=== PATIENT | male | born 1955 | race African-American/Black ===

== ENCOUNTER 2019-02-11 14:46 | Emergency (ER) | payer MEDICARE ==
[~2019-02-11] VITALS: Ht 170.2 cm; Wt 64.9 kg
[2019-02-11] MEDS ORDERED: VERAPAMIL SR 180 MG TABLET.ER. PO STA (15:30)
[2019-02-11 15:47] LABS: BASO % 1 % (0-3); EOS # 0.1 x10^3/uL (0.0-0.7); EOS % 1 % (0-3); HEMATOCRIT 33.6 % (39.0-53.0); HEMOGLOBIN 10.9 g/dL (13.0-17.5); LYMPH # 3.4 x10^3/uL (1.0-4.8); LYMPH % 55 % (24-48); MEAN CORPUSCULAR HEMOGLOBIN 20 pg (25-35); MEAN CORPUSCULAR HGB CONC 32 g/dL (31-37); MEAN CORPUSCULAR VOLUME 63 fL (79-100); MONO # 0.4 x10^3/uL (0.0-1.1); MONO % 6 % (0-9); NEUT # 2.3 x10^3uL (1.8-7.7); NEUT % 37 % (31-73); PLATELET COUNT 299 x10^3/uL (140-400); RED BLOOD COUNT 5.36 x10^6/uL (4.30-5.70); WHITE BLOOD COUNT 6.2 x10^3/uL (4.0-11.0)
[2019-02-11 15:52] LABS: CALCIUM 8.8 mg/dL (8.5-10.1); CREATININE 0.9 mg/dL (0.7-1.3); GFR 102.5; POTASSIUM 4.1 mmol/L (3.5-5.1)
[2019-02-11 15:53] LABS: PROTHROMBIN TIME PATIENT 12.9 SEC (11.7-14.0)
[2019-02-11 15:57] LABS: ALBUMIN 3.6 g/dL (3.4-5.0); ALBUMIN/GLOBULIN RATIO 1.1 (1.0-1.7); TOTAL BILIRUBIN 0.3 mg/dL (0.2-1.0); TOTAL PROTEIN 6.8 g/dL (6.4-8.2)
--- NOTE | 2019-02-11 16:05 | PHYS DOC ---
Past Medical History Past Medical History: Hypertension, Seizure, Other Additional Past Medical Histor: NARCOLEPSY Past Surgical History: Other Additional Past Surgical Histo: "BACK SURGERY" Smoking: Cigarettes Alcohol Use: Heavy Drug Use: Cocaine Adult General Chief Complaint Chief Complaint: SEIZURE HPI HPI Patient is a 63 year old male who presents after a seizure that occurred around 2:10 PM. Friend describes him as slumping over in the car and staring straight ahead. He was a passenger in the vehicle. Patient [place] from [place] of town and has a history of seizures. Is followed by neurologist who has been trying therapy with verapamil. Patient did not take his medicines today. He was drinking last night. Denies alcohol today. Pain is 0/10. Was brought to ER after event. Review of Systems Review of Systems Constitutional: Denies fever or chills [] Eyes: Denies change in visual acuity, redness, or eye pain [] HENT: Denies nasal congestion or sore throat [] Respiratory: Denies cough or shortness of breath [] Cardiovascular: No additional information not addressed in HPI [] GI: Denies abdominal pain, nausea, vomiting, bloody stools or diarrhea [] : Denies dysuria or hematuria [] Musculoskeletal: Denies back pain or joint pain [] Integument: Denies rash or skin lesions [] Neurologic: Reports headache denies focal weakness or sensory changes [] Endocrine: Denies polyuria or polydipsia [] Complete systems were reviewed and found to be within normal limits, except as d ocumented in this note. Current Medications Current Medications Current Medications Medications (Trade) Dose Ordered Sig/Watson Start Time Stop Time Status Last Admin Dose Admin Levetiracetam 1000 mg/Sodium Chloride 110 ml @ 440 mls/hr 1X ONCE 02/11/19 15:45 02/11/19 15:59 DC 02/11/19 15:54 440 MLS/HR Verapamil HCl (Calan Sr) 360 mg 1X STAT 02/11/19 15:30 02/11/19 15:48 DC 02/11/19 15:55 360 MG Allergies Allergies Allergies Coded Allergies Type Severity Reaction Last Updated Verified No Known Drug Allergies 02/11/19 No Physical Exam Physical Exam Constitutional: Well developed, well nourished, no acute distress, non-toxic appearance. [] HENT: Normocephalic, atraumatic, bilateral external ears normal, oropharynx moist, no oral exudates, nose normal, missing teeth Eyes: PERRLA, EOMI, conjunctiva normal, no discharge. [] Neck: Normal range of motion, no tenderness, supple, no stridor. [] Cardiovascular:Heart rate regular rhythm, no murmur [] Lungs & Thorax: Bilateral breath sounds clear to auscultation [] Abdomen: Bowel sounds normal, soft, no tenderness, no masses, no pulsatile masses. [] Skin: Warm, dry, no erythema, no rash. [] Back: No tenderness, no CVA tenderness. [] Extremities: No tenderness, no cyanosis, no clubbing, ROM intact, no edema. [] Neurologic: Alert and oriented X 3, normal motor function, normal sensory function, no focal deficits noted. [] Psychologic: Affect lethargic, mood: tired. Current Patient Data Vital Signs Vital Signs Date Time Temp Pulse Resp B/P (MAP) Pulse Ox O2 Delivery O2 Flow Rate FiO2 02/11/19 15:55 68 143/95 02/11/19 15:17 98.6 16 99 Room Air 98.6 Lab Values Laboratory Tests Test 02/11/19 15:36 White Blood Count 6.2 x10^3/uL (4.0-11.0) Red Blood Count 5.36 x10^6/uL (4.30-5.70) Hemoglobin 10.9 g/dL (13.0-17.5) L Hematocrit 33.6 % (39.0-53.0) L Mean Corpuscular Volume 63 fL (79-100) L Mean Corpuscular Hemoglobin 20 pg (25-35) L Mean Corpuscular Hemoglobin Concent 32 g/dL (31-37) Red Cell Distribution Width 24.0 % (11.5-14.5) H Platelet Count 299 x10^3/uL (140-400) Neutrophils (%) (Auto) 37 % (31-73) Lymphocytes (%) (Auto) 55 % (24-48) H Monocytes (%) (Auto) 6 % (0-9) Eosinophils (%) (Auto) 1 % (0-3) Basophils (%) (Auto) 1 % (0-3) Neutrophils # (Auto) 2.3 x10^3uL (1.8-7.7) Lymphocytes # (Auto) 3.4 x10^3/uL (1.0-4.8) Monocytes # (Auto) 0.4 x10^3/uL (0.0-1.1) Eosinophils # (Auto) 0.1 x10^3/uL (0.0-0.7) Basophils # (Auto) 0.0 x10^3/uL (0.0-0.2) Platelet Estimate Pending Prothrombin Time 12.9 SEC (11.7-14.0) Prothrombin Time INR 1.0 (0.8-1.1) PTT 28 SEC (24-38) Sodium Level 138 mmol/L (136-145) Potassium Level 4.1 mmol/L (3.5-5.1) Chloride Level 102 mmol/L (98-107) Carbon Dioxide Level 26 mmol/L (21-32) Anion Gap 10 (6-14) Blood Urea Nitrogen 12 mg/dL (8-26) Creatinine 0.9 mg/dL (0.7-1.3) Estimated GFR (Cockcroft-Gault) 102.5 BUN/Creatinine Ratio 13 (6-20) Glucose Level 109 mg/dL (70-99) H Calcium Level 8.8 mg/dL (8.5-10.1) Total Bilirubin 0.3 mg/dL (0.2-1.0) Aspartate Amino Transferase (AST) 16 U/L (15-37) Alanine Aminotransferase (ALT) 15 U/L (16-63) L Alkaline Phosphatase 71 U/L (46-116) Total Protein 6.8 g/dL (6.4-8.2) Albumin 3.6 g/dL (3.4-5.0) Albumin/Globulin Ratio 1.1 (1.0-1.7) Laboratory Tests 02/11/19 15:36 Laboratory Tests 02/11/19 15:36 EKG EKG EKG interpreted by Dr. Lennon EKG shows NO STEMI, Sinus with rate of 66.[] Radiology/Procedures Radiology/Procedures []PATIENT: WEN MORALESACCOUNT: [id number]#: [id number] : 1955 LOCATION: ER AGE: 63 SEX: M EXAM STATUS: REG ER ORD. PHYSICIAN: MARIELOS MORENO APRN REASON: headache, SEAZURE PROCEDURE: CT HEAD WO CONTRAST CT head without contrast: Reason for examination: Headache and seizure. Axial images were obtained through the brain. No contrast was administered. Exposure: One or more of the following individualized dose reduction techniques were utilized for this examination: 1. Automated exposure control 2. Adjustment of the mA and/or kV according to patient size 3. Use of iterative reconstruction technique. Ventricular systems are symmetric and not abnormally dilated considering patient's age. No midline shift is seen. There is no evidence of intracranial hemorrhage, acute infarct, mass or edema. There are some mild patchy deep white matter changes consistent with microvascular ischemia. No abnormalities are seen at the orbits. The paranasal sinuses and mastoid air cells are clear. No acute abnormality seen in the skull. IMPRESSION: No acute intracranial abnormality evident. Mild atrophy with some mild deep white matter changes consistent with microvascular ischemia. Electronically signed by: Christie Amaro MD (02/11/2019 4:13 PM) [facility] [place] Med Decision Making Course & Med Decision Making Pertinent Labs and Imaging studies reviewed. (See chart for details) Will obtain labs, head CT, will give verapamil and Keppra in ER. Patient is agreeable with plan. Discussed with patient and family how he can not drive until cleared by Neurologist in [place]. Head CT is negative. Labs are unremarkable. Appears seizure was brought on by Alcohol and not taking medications. Gave medication in ER. Will have follow up with Neurology. Patient is close to being out of verapamil will prescribe a week's worth. Dragon Disclaimer Dragon Disclaimer This electronic medical record was generated, in whole or in part, using a voice recognition dictation system. Departure Departure Impression: Primary Impression: Focal seizure Disposition: HOME, SELF-CARE Condition: STABLE Referrals: UNKNOWN PCP NAME (PCP) Additional Instructions: Please do not drive until cleared by Neurologist in [place]. Follow up with neurologist and primary care doctor as soon as possible. Take your medications daily. Do not drink alcohol as that can cause you to have seizure. Scripts Verapamil Hcl (VERAPAMIL ER) 240 Mg Cap24h.pel 360 MG PO DAILY, #7 CAP 5 Refills Prov: MARIELOS MORENO APRN 02/11/19 MARIELOS MORENO APRN February 11, 2019 16:05
--- NOTE | 2019-02-11 16:16 | RAD ---
CT head without contrast: Reason for examination: Headache and seizure. Axial images were obtained through the brain. No contrast was administered. Exposure: One or more of the following individualized dose reduction techniques were utilized for this examination: 1. Automated exposure control 2. Adjustment of the mA and/or kV according to patient size 3. Use of iterative reconstruction technique. Ventricular systems are symmetric and not abnormally dilated considering patient's age. No midline shift is seen. There is no evidence of intracranial hemorrhage, acute infarct, mass or edema. There are some mild patchy deep white matter changes consistent with microvascular ischemia. No abnormalities are seen at the orbits. The paranasal sinuses and mastoid air cells are clear. No acute abnormality seen in the skull. IMPRESSION: No acute intracranial abnormality evident. Mild atrophy with some mild deep white matter changes consistent with microvascular ischemia. Electronically signed by: Christie Amaro MD (02/11/2019 4:13 PM) [facility] [place]
[2019-02-11] MEDS ORDERED: VERA240C2 PO (16:43)
[2019-02-11 17:00] VITALS: BP 152/83
[2019-02-11 19:36] LABS: % EOS 4 % (0-5); % LYMPHS 31 % (24-48); % MONOS 7 % (0-10); % SEGS 58 % (35-66); ANISOCYTOSIS MOD; BIZZARE CELLS FEW; HYPOCHROMIA MARKED; MICROCYTOSIS MARKED; PLT ESTIMATE ADEQUATE (ADEQUATE); SCHISTOCYTES FEW; TARGET CELLS FEW
--- NOTE | 2019-02-12 14:30 | EKG ---
[facility] [address] [place] [address] Test Date: 2019-02-11 Test Time: 15:43:25 Pat Name: WEN MORALES Department: Room: Gender: M Retail Representative: : 1955 Requested By: MARIELOS MORENO Order Number: [id number] Reading MD: Measurements Intervals [place] Rate: 66 P: 0 MO: 186 QRS: 64 QRSD: 80 T: 113 QT: 406 QTc: 427 Interpretive Statements SINUS RHYTHM T ABNORMALITY IN ANTERIOR LEADS LATERAL LEADS ABNORMAL ECG RI6.01 No previous ECG available for comparison
== END 2019-02-11 17:03 | disposition home or self-care (01) ==
LOC: ER 14:46
DX: R56.9 Unspecified convulsions (principal); I10 Essential (primary) hypertension; F17.210 Nicotine dependence, cigarettes, uncomplicated; F10.20 Alcohol dependence, uncomplicated; Y90.9 Presence of alcohol in blood, level not specified
CPT/HCPCS: 36415; 70450; 80053; 85007; 85025; 85610; 85730; 93005; 96365; 99285; J1953